=== PATIENT | female | born 1990 | race Caucasian/White ===

== ENCOUNTER → 2016-09-18 | Outpatient (REF) | payer OTHER | LOC: M LAB REF 13:47 | PROVIDERS: ATTEND Obstetrics & Gynecology | DX: O36.80X0 Pregnancy with inconclusive fetal viability, not applicable or unspecified (principal); Z3A.00 Weeks of gestation of pregnancy not specified ==

== ENCOUNTER → 2016-12-03 | Outpatient (CLI) | payer OTHER ==
[2016-12-03 19:58] LABS: ALT/SGPT 18 U/L (12-78); AST/SGOT 10 U/L (15-37); BILIRUBIN,TOTAL 0.2 MG/DL (0.2-1.0); CREATININE FOR GFR 0.61 MG/DL (0.55-1.02); GLOMERULAR FILTRATION RATE > 60.0 (>60); URIC ACID 2.7 MG/DL (2.6-6.0)
[2016-12-03 20:04] LABS: MEAN CORPUSCULAR HEMOGLOBIN 29.1 pg (27.0-33.0); MEAN CORPUSCULAR VOLUME 83.2 fl (80.0-96.0); RED CELL DISTRIBUTION WIDTH 13.8 % (11.5-14.5); WHITE BLOOD COUNT 8.9 K/mm3 (4.0-10.0)
== END ==
LOC: M LAB 16:30
PROVIDERS: ATTEND Advanced Practice Midwife
DX: R03.0 Elevated blood-pressure reading, without diagnosis of hypertension (principal)

== ENCOUNTER → 2017-01-27 | Outpatient (CLI) | payer OTHER ==
--- NOTE | 2017-01-27 21:58 | REP ---
Clinical: Anatomical evaluation. Comparison: 12/31/2016 . Findings: Examination demonstrates a single live intrauterine in breech presentation. motion is identified by technologist. Placenta is noted anteriorly and grade one without evidence for placenta previa or abruption. Amniotic fluid volume is normal. Cervix measures 5.3 cm in length and appears closed. No evidence for nuchal cord. Gestational age by LMP 23 weeks 3 days with OLIVIA 05/23/2017 . Gestational age by current measurements 23 weeks 3 days with OLIVIA 05/23/2017 . FHR equals 162 beats per minute. Estimated weight 620 grams ( 53rd percentile). Anatomical assessment demonstrates normal structures including cranium, choroid plexus, cavum, cerebellum/posterior fossa, lungs, diaphragm, stomach, cord insertion/three-vessel cord, kidneys/bladder, and extremities. Limited evaluation of the facial features, heart/ventricular outflow tracts, and spine. Impression: 1. Single live intrauterine in breech presentation demonstrating appropriate interval growth. 2. Anatomical limitations as described above may warrant reevaluation and follow-up. No gross abnormality otherwise noted. Signed by Jagdish Rice MD 01/27/2017 09:49 P
== END ==
LOC: MERGE 14:00 → M RAD 14:17
PROVIDERS: ATTEND Obstetrics & Gynecology
DX: Z36 Encounter for antenatal screening of mother (principal); Z3A.23 23 weeks gestation of pregnancy

== ENCOUNTER → 2017-02-16 | Outpatient (CLI) | payer OTHER ==
[2017-02-16 10:33] LABS: MEAN CORPUSCULAR HEMOGLOBIN 29.5 pg (27.0-33.0); MEAN CORPUSCULAR HGB CONC 34.6 g/dl (32.0-36.5); MEAN CORPUSCULAR VOLUME 85.2 fl (80.0-96.0); RED CELL DISTRIBUTION WIDTH 14.1 % (11.5-14.5); WHITE BLOOD COUNT 7.6 K/mm3 (4.0-10.0)
== END ==
LOC: M LAB 08:57
PROVIDERS: ATTEND Obstetrics & Gynecology
DX: Z36 Encounter for antenatal screening of mother (principal); Z3A.00 Weeks of gestation of pregnancy not specified

== ENCOUNTER → 2017-02-24 | Outpatient (CLI) | payer OTHER ==
[~2017-02-24] MED LIST: ACET50TA PO; ASPI81TA85 PO; LABE30TA PO; MOTR200T44 PO; NORC1TAB4 PO; PERC5TAB12 PO; PHEN1SUP6 PO; PRENTAB9 PO
[2017-02-24 10:26] LABS: MEAN CORPUSCULAR HEMOGLOBIN 29.9 pg (27.0-33.0); MEAN CORPUSCULAR HGB CONC 34.3 g/dl (32.0-36.5); MEAN CORPUSCULAR VOLUME 87.1 fl (80.0-96.0); RED CELL DISTRIBUTION WIDTH 13.9 % (11.5-14.5); WHITE BLOOD COUNT 11.3 K/mm3 (4.0-10.0)
[2017-02-24 10:54] LABS: ALT/SGPT 23 U/L (12-78); AST/SGOT 15 U/L (15-37); BILIRUBIN,TOTAL 0.4 MG/DL (0.2-1.0); CREATININE FOR GFR 0.76 MG/DL (0.55-1.02); GLOMERULAR FILTRATION RATE > 60.0 (>60); URIC ACID 3.5 MG/DL (2.6-6.0)
== END ==
LOC: M LAB 09:37
PROVIDERS: ATTEND Advanced Practice Midwife
DX: O13.2 Gestational [pregnancy-induced] hypertension without significant proteinuria, second trimester (principal)

== ENCOUNTER → 2017-02-26 | Outpatient (CLI) | payer OTHER | LOC: M LAB 06:57 | PROVIDERS: ATTEND Obstetrics & Gynecology | DX: O99.810 Abnormal glucose complicating pregnancy (principal) ==

== ENCOUNTER 2017-04-11 13:37 | Outpatient (CLI) | payer OTHER ==
[~2017-04-11] VITALS: Ht 160 cm; Wt 84.0 kg
[2017-04-11 14:26] LABS: MEAN CORPUSCULAR HEMOGLOBIN 29.4 pg (27.0-33.0); MEAN CORPUSCULAR HGB CONC 34.8 g/dl (32.0-36.5); MEAN CORPUSCULAR VOLUME 84.4 fl (80.0-96.0); RED CELL DISTRIBUTION WIDTH 14.3 % (11.5-14.5); WHITE BLOOD COUNT 8.7 K/mm3 (4.0-10.0)
[2017-04-11 15:03] LABS: ALBUMIN 2.8 GM/DL (3.2-5.2); ALBUMIN/GLOBULIN RATIO 0.85 (1.00-1.93); ALKALINE PHOSPHATASE 83 U/L (45-117); ALT/SGPT 23 U/L (12-78); ANION GAP 11 MEQ/L (8-16); AST/SGOT 14 U/L (15-37); BILIRUBIN,TOTAL 0.3 MG/DL (0.2-1.0); BLOOD UREA NITROGEN 8 MG/DL (7-18); CALCIUM LEVEL 8.3 MG/DL (8.5-10.1); CARBON DIOXIDE LEVEL 22 MEQ/L (21-32); CHLORIDE LEVEL 109 MEQ/L (98-107); CREATININE FOR GFR 0.63 MG/DL (0.55-1.02); GLOMERULAR FILTRATION RATE > 60.0 (>60); GLUCOSE, FASTING 92 MG/DL (70-105); POTASSIUM SERUM 3.9 MEQ/L (3.5-5.1); SODIUM LEVEL 142 MEQ/L (136-145); TOTAL PROTEIN 6.1 GM/DL (6.4-8.2)
[2017-04-11] MEDS ORDERED: PRENTAB9 PO (15:16)
[2017-05-12] MEDS ORDERED: LABE30TA PO (10:43)
[2017-05-12] MEDS ORDERED: ASPI81TA85 PO (10:43)
[2017-05-21] MEDS ORDERED: PERC5TAB12 PO (08:53)
== END 2017-04-11 16:30 | disposition home or self-care (01) ==
LOC: M LDO 13:37
PROVIDERS: ATTEND Advanced Practice Midwife
DX: O99.89 Other specified diseases and conditions complicating pregnancy, childbirth and the puerperium (principal); R53.81 Other malaise; R51 Headache; R42 Dizziness and giddiness; Z3A.34 34 weeks gestation of pregnancy

== ENCOUNTER → 2017-04-12 | Outpatient (REF) | payer OTHER | LOC: M LAB REF 18:01 | PROVIDERS: ATTEND Obstetrics & Gynecology | DX: O13.3 Gestational [pregnancy-induced] hypertension without significant proteinuria, third trimester (principal); Z3A.00 Weeks of gestation of pregnancy not specified ==

== ENCOUNTER → 2017-04-26 | Outpatient (REF) | payer OTHER | LOC: M LAB REF 16:49 | PROVIDERS: ATTEND Obstetrics & Gynecology | DX: O09.893 Supervision of other high risk pregnancies, third trimester (principal); Z3A.00 Weeks of gestation of pregnancy not specified ==

== ENCOUNTER 2017-05-19 05:31 | Inpatient (IN) | payer OTHER ==
[2017-05-19] VITALS (9 sets, daily range): BP systolic 117–134; BP diastolic 56–79
[~2017-05-19] VITALS: Ht 160 cm; Wt 92.6 kg
[~2017-05-19 05:31] MED LIST changes: -ACET50TA PO; -MOTR200T44 PO; -NORC1TAB4 PO; -PERC5TAB12 PO; -PHEN1SUP6 PO
[2017-05-19] MEDS ORDERED: BICITRA 30ML SOLN UDC PO ONE (06:00)
[2017-05-19] MEDS ORDERED: LACTATED RINGER'S 1000 ML IV ONE (06:00)
[2017-05-19 06:18] LABS: MEAN CORPUSCULAR HEMOGLOBIN 29.3 pg (27.0-33.0); MEAN CORPUSCULAR HGB CONC 35.1 g/dl (32.0-36.5); MEAN CORPUSCULAR VOLUME 83.4 fl (80.0-96.0); WHITE BLOOD COUNT 9.6 K/mm3 (4.0-10.0)
[2017-05-19] MEDS ORDERED: LR 1,000 ML IV SCH ×2 (07:00→09:15)
[2017-05-19] MEDS ORDERED: MORPHINE PRES-FREE INJ 10 MG/10 ML VIAL (J2274) As Ordered ONE (07:24)
[2017-05-19] MEDS ORDERED: OXYTOCIN INJ 10 UNITS/ML VIAL (J2590) As Ordered ONE (07:25)
[2017-05-19] MEDS ORDERED: KETOROLAC 60 MG/2 ML VIAL (J1885) As Ordered ONE (07:25)
[2017-05-19] MEDS ORDERED: ONDANSETRON 4MG/2ML VIAL (J2405) As Ordered ONE (07:25)
[2017-05-19] MEDS ORDERED: NALOXONE INJ 0.4 MG/1 ML VIAL (J2310) IV PRN ×2 (07:55)
[2017-05-19] MEDS ORDERED: ONDANSETRON 4MG/2ML VIAL (J2405) IV PRN ×3 (07:55→12:45)
[2017-05-19] MEDS ORDERED: METOCLOPRAMIDE INJ 10MG/2ML VIAL (J2765) IV PRN ×2 (07:55→09:15)
[2017-05-19] MEDS ORDERED: NALBUPHINE HCL 10 MG/ML AMP (J2300) IV PRN (07:55)
--- NOTE | 2017-05-19 08:29 | HPE ---
DATE OF ADMISSION: 05/19/2017 Tatiana is a 26-year-old female 5, para 1-0-3-1 with an estimated date of confinement (EDC) of 05/25/2017, estimated gestational age 39 weeks gestation with a history of prior section who is being admitted for an elective repeat section. Upon admission, no bleeding, no leakage of fluid, good movement. Her record reviewed, which was essentially unremarkable. lab: Blood type is A+, rubella immune, hepatitis negative, HIV negative, GC and chlamydia negative, 1-hour sugar testing was within normal limits. Her GBS is negative. PAST MEDICAL HISTORY: Denies. PAST SURGICAL HISTORY: Significant for dilatation and curettage times three, section times one. SOCIAL HISTORY: The patient denies any alcohol, drugs or cigarette smoking. REVIEW OF SYSTEMS: Unremarkable. FAMILY HISTORY: Significant for stomach and bladder cancer. PHYSICAL EXAMINATION ON ADMISSION: HEENT: Grossly within normal limits. ABDOMEN: Soft, nontender, nondistended. EXTREMITIES: No clubbing, cyanosis or edema. The vaginal exam was deferred. Tracing reviewed and category 1 tracing. ASSESSMENT: Intrauterine at 39 weeks gestation for elective repeat section. PLAN: Admit to labor and delivery. Routine labs sent. Awaiting OR for repeat section.
[2017-05-19 08:37] LABS: CORD GAS ABE A -0.9; CORD GAS HCO3 A 26.2 MEQ/L; CORD GAS O2 SAT A 23.7 %; CORD GAS PCO2 A 53.1 mmHg; CORD GAS PH A 7.311 UNITS; CORD GAS SBC A 21.9 MEQ/L; CORD GAS TCO2 A 27.8 MEQ/L
[2017-05-19 08:39] LABS: CORD GAS HCO3 V 22.1 MEQ/L; CORD GAS O2 SAT V 65.1 %; CORD GAS PCO2 V 40.2 mmHg; CORD GAS PH V 7.359 UNITS; CORD GAS PO2 V 28.3 mmHg; CORD GAS SBC V 21.2 MEQ/L; CORD GAS TCO2 V 23.4 MEQ/L
[2017-05-19] MEDS: PRENATAL VITAMINS CHEWABLE TABLET PO SCH (09:00)
[2017-05-19] MEDS: DOCUSATE SODIUM 100 MG CAP PO SCH ×2 (09:00→21:31)
[2017-05-19] MEDS ORDERED: PERCOCET 5MG/325MG TAB PO PRN (09:15)
[2017-05-19] MEDS ORDERED: fentaNYL 100 MCG/2 ML INJECTION (J3010) IV PRN (09:15)
[2017-05-19] MEDS ORDERED: MEPERIDINE INJ 25 MG/ML VIAL (J2175) IV PRN (09:15)
--- NOTE | 2017-05-19 09:45 | RO ---
DATE OF PROCEDURE: 05/19/2017 Tatiana is a 26-year-old female 5, para 1-0-3-1 with a history of prior section who is being admitted at 39 weeks for repeat section. PREOPERATIVE DIAGNOSIS: Term for elective repeat section. POSTOPERATIVE DIAGNOSIS: Term for elective repeat section. PROCEDURE: 1. Repeat section. 2. Revision of old scar. ANESTHESIA: Spinal. SURGEON: Dr. Walsh CATHODE [employer] PROCESSOR: Sweetie Vidal CNM COMPLICATIONS: None. ESTIMATED BLOOD LOSS: 500 mL. FINDINGS: Live female infant in the right occiput transverse position. scores 9 and 9. weight 7 pounds 10 ounces. Placenta removed manually intact. Normal-appearing tubes and ovaries. DESCRIPTION OF PROCEDURE: After obtaining informed consent, the patient was taken to the operating room where spinal anesthetic was found to be adequate. She was then draped and prepped in usual sterile fashion in supine position. At this point, elliptical incision was made over old scar. This was carried down to the fascia. Fascia was incised in midline fashion and carried through laterally. Superior aspect of the fascia then grasped with two Joshua clamps, tented off and dissected off the rectus muscles sharply. The inferior aspect was dissected off in a similar fashion. Rectus muscles in midline fashion. Perineum identified. Peritoneal cavity entered bluntly. Superior and inferior dissection of the peritoneum was then done with good visualization of the bladder. At this point, a Mobius skin retractor was placed. A low-transverse uterine incision was made. Infant was delivered in atraumatic fashion. Nose and mouth bulb suctioned. Cord doubly clamped and cut and was handed over to the waiting warmer. Cord blood and cord gas sent. Placenta removed manually. Uterus cleared of all clot and debris. The uterine incision was then repaired in two separate layers of #0 Vicryl sutures. Pelvis copiously irrigated with normal saline and suctioned out. Attention turned to the peritoneum, which was closed in a running fashion using #2-0 Vicryl. Superficial bleeders coagulated. Fascia closed in two separate segments of #0 Vicryl sutures and the skin was reapproximated in subcuticular fashion using #3-0 Vicryl on a Trent. Steri-Strips placed. The patient tolerated procedure well. She was then transferred to recovery room in stable condition.
[2017-05-19] MEDS ORDERED: PHEN1SUP6 PO (12:16)
[2017-05-19] MEDS ORDERED: ACET50TA PO (12:16)
[2017-05-19] MEDS: LR 1,000 ML IV SCH ×2 (12:39→18:12)
[2017-05-19] MEDS ORDERED: MOM 30ML SUSPENSION UDC PO PRN (12:45)
[2017-05-19] MEDS ORDERED: MEASLES,MUMPS,RUBELLA VACCINE INJ (MMR-II) (90707) SC SCH (12:45)
[2017-05-19] MEDS ORDERED: RHOGAM 300 MCG (1500 IU) INJ (J2790) IM SCH (12:45)
[2017-05-19] MEDS ORDERED: METHYLERGONOVINE MALEATE 0.2 MG TAB PO PRN (12:45)
[2017-05-19] MEDS: NORCO, ANEXSIA 5/325MG TABLET (HYDROcodone/ACETAMINOPHEN) PO PRN (14:04)
[2017-05-19] MEDS: IBUPROFEN 800 MG TAB PO SCH (17:52)
[2017-05-20] MEDS: IBUPROFEN 800 MG TAB PO SCH ×3 (01:56→17:33)
[2017-05-20 02:16] VITALS: BP 125/63
[2017-05-20] MEDS: LR 1,000 ML IV SCH ×3 (04:39→20:39)
[2017-05-20 06:24] VITALS: BP 130/68
[2017-05-20 07:10] LABS: MEAN CORPUSCULAR HEMOGLOBIN 30.4 pg (27.0-33.0); MEAN CORPUSCULAR VOLUME 84.3 fl (80.0-96.0); RED CELL DISTRIBUTION WIDTH 14.2 % (11.5-14.5)
[2017-05-20] MEDS: NORCO, ANEXSIA 5/325MG TABLET (HYDROcodone/ACETAMINOPHEN) PO PRN ×3 (07:29→19:56)
[2017-05-20] MEDS: PRENATAL VITAMINS CHEWABLE TABLET PO SCH (07:31)
[2017-05-20] MEDS: DOCUSATE SODIUM 100 MG CAP PO SCH ×2 (07:32→19:56)
[2017-05-20 10:00] VITALS: BP 121/78
[2017-05-20 14:00] VITALS: BP 124/74
[2017-05-20 18:00] VITALS: BP 132/79
[2017-05-20 22:38] VITALS: BP 119/68
[2017-05-20] MEDS: SIMETHICONE 80 MG CHEW TAB PO PRN (23:15)
[2017-05-21] MEDS: NORCO, ANEXSIA 5/325MG TABLET (HYDROcodone/ACETAMINOPHEN) PO PRN ×2 (00:38→06:30)
[2017-05-21] MEDS: IBUPROFEN 800 MG TAB PO SCH ×2 (00:38→08:17)
[2017-05-21] MEDS: LR 1,000 ML IV SCH (04:39)
[2017-05-21 06:38] VITALS: BP 122/59
[2017-05-21] MEDS: DOCUSATE SODIUM 100 MG CAP PO SCH (08:18)
[2017-05-21] MEDS: PRENATAL VITAMINS CHEWABLE TABLET PO SCH (08:19)
[2017-05-21] MEDS: SIMETHICONE 80 MG CHEW TAB PO PRN (08:20)
[2017-05-21] MEDS ORDERED: PERC5TAB12 PO (08:53)
[2017-05-21] MEDS ORDERED: NORC1TAB4 PO (09:20)
[2017-05-21] MEDS ORDERED: MOTR200T44 PO (09:20)
--- NOTE | 2017-05-21 09:21 | DSES ---
DATE OF ADMISSION: 05/19/2017 DATE OF DISCHARGE:05/21/17 FINAL DIAGNOSIS: Term for elective repeat section. PROCEDURE DURING ADMISSION: Repeat section. CONDITION ON DISCHARGE: Stable. DISCHARGE INSTRUCTIONS: The patient was discharged home with instruction to call if there is any severe bleeding, pain or temperature greater than 101. She is given a prescription for Percocet as needed for pain. She is further instructed to use Motrin as needed. BRIEF HISTORY: Tatiana is a 26-year-old female, G5, para 1-0-3-1 who was admitted at 39 weeks gestation for repeat section. She underwent the above- noted procedure and was then transferred to [facility] for postoperative care. Postoperatively she did well, remained afebrile all throughout her hospital stay. On postoperative day #2 she was found to be in stable condition. Her physical exam was within normal limits. She met all the criteria for discharge. At this point, the decision was made to discharge the patient home. She will follow up in the office in approximately 2 weeks for an incision check. TREVA
== END 2017-05-21 11:05 | disposition home or self-care (01) | DRG 540 ==
LOC: M LDI 05:31 → EDSTATUS 07:30 → M OBS 10:22
PROVIDERS: ADMIT Obstetrics & Gynecology; ATTEND Obstetrics & Gynecology
PROC: 10D00Z1 Extraction of Products of Conception, Low, Open Approach (ICD-10-PCS; principal; 2017-05-19 07:30)
DX: O34.211 Maternal care for low transverse scar from previous cesarean delivery (principal); Z37.0 Single live birth; Z3A.39 39 weeks gestation of pregnancy

== ENCOUNTER → 2017-08-06 | Outpatient (REF) | payer OTHER ==
[~2017-08-06] MED LIST changes: +ACET50TA PO; +MOTR200T44 PO; +NORC1TAB4 PO; +PERC5TAB12 PO; +PHEN1SUP6 PO
== END ==
LOC: M SFHCLERA 10:37
PROVIDERS: ATTEND Physician Assistant
DX: J02.9 Acute pharyngitis, unspecified (principal)

== ENCOUNTER → 2018-08-28 | Outpatient (REF) | payer OTHER ==
[~2018-08-28] MED LIST changes: -ACET50TA PO; +LABE300T2 PO; -LABE30TA PO; +MAPA500T2 PO
== END ==
LOC: M SFHCLERA 18:40
PROVIDERS: ATTEND Nurse Practitioner Family
DX: J02.9 Acute pharyngitis, unspecified (principal)

== ENCOUNTER → 2019-10-17 | Outpatient (CLI) | payer OTHER ==
[~2019-10-17] MED LIST changes: -NORC1TAB4 PO; +NORC1TAB7 PO
--- NOTE | 2019-10-17 14:26 | REP ---
Clinical: Irregular menstrual cycles. Technique: Transabdominal pelvic ultrasound followed by transvaginal examination for better evaluation of the endometrium and adnexa with color Doppler evaluation of the ovaries. Findings: The bladder is normal and measures 9.8 x 10.6 x 7.0 cm. Normal anteverted uterus measures 9.8 x 3.5 x 5.8 cm. Endometrial complex measures 5.7 mm thickness. No uterine or endometrial abnormalities appreciated. Bilateral ovaries are normal in appearance and vascularity without torsion. Right ovary measures 3.4 x 1.9 x 4 1 cm (RI 0.61) and includes 2.9 cm physiologic cyst / dominant follicle. Left ovary measures 2.7 x 2.5 x 2.2 cm (RI 0.64) with 1.8 cm simple paraovarian cyst. No significant pelvic fluid or adnexal mass lesion. Impression: 1. Normal uterus. 2. Ovarian cysts likely physiologic. Consider reevaluation in 4-6 weeks to evaluate for resolution if necessary. Electronically Signed by Jagdish Rice MD 10/17/2019 02:17 P
== END ==
LOC: M RAD 11:55
PROVIDERS: ATTEND Obstetrics & Gynecology
DX: N92.6 Irregular menstruation, unspecified (principal)

== ENCOUNTER → 2021-02-28 | Outpatient (CLI) | payer OTHER ==
[~2021-02-28] MED LIST changes: -ASPI81TA85 PO; +ASPI81TA86 PO
--- NOTE | 2021-02-28 09:29 | REP ---
INDICATION: RADICULOPATHY COMPARISON: None. TECHNIQUE: AP, lateral, bilateral oblique, and coned-down views of the lumbar spine. FINDINGS: Alignment and lordosis maintained. Vertebral bodies are intact. No acute fracture/compression injury or subluxation. Disc spaces are relatively normal/age-appropriate. No obvious spondylolysis or spondylolisthesis. IMPRESSION: Normal age-appropriate lumbosacral Spine series. <Electronically signed by Jagdish Rice > 02/28/21 [id number]
== END ==
LOC: M WUC 09:07
PROVIDERS: ATTEND Family Medicine
DX: M54.17 Radiculopathy, lumbosacral region (principal)

== ENCOUNTER → 2021-10-01 | Outpatient (REF) | payer OTHER | LOC: M LAB REF 17:22 | PROVIDERS: ATTEND Physician Assistant | DX: D49.2 Neoplasm of unspecified behavior of bone, soft tissue, and skin (principal) ==

== ENCOUNTER → 2021-11-06 | Outpatient (CLI) | payer OTHER | LOC: M WHC 12:18 | PROVIDERS: ATTEND Physician Assistant | DX: N83.202 Unspecified ovarian cyst, left side (principal) ==

== ENCOUNTER → 2021-11-06 | Outpatient (REF) | payer OTHER ==
[2021-11-06 13:50] LABS: APPEARANCE, URINE CLEAR (CLEAR); BACTERIA, URINE AUTO NEGATIVE (NEGATIVE); BILIRUBIN, URINE AUTO NEGATIVE (NEGATIVE); BLOOD, URINE BLOOD NEGATIVE (NEGATIVE); COLOR, URINE STRAW (YELLOW); GLUCOSE, URINE (UA) AUTO NEGATIVE (NEGATIVE); KETONE, URINE AUTO NEGATIVE (NEGATIVE); LEUKOCYTE ESTERASE, URINE AUTO NEGATIVE (NEGATIVE); NITRITE, URINE AUTO NEGATIVE (NEGATIVE); PROTEIN, URINE AUTO NEGATIVE (NEGATIVE); RBC, URINE AUTO 0 /HPF (0-3); SPECIFIC GRAVITY URINE AUTO 1.004 (1.002-1.035); SQUAMOUS EPITHELIAL CELL UR AU 0 /HPF (0-6); UROBILINOGEN, URINE AUTO 0.2 mg/dL (0.0-2.0); WBC, URINE AUTO 1 /HPF (0-3)
== END ==
LOC: M LAB REF 12:49
PROVIDERS: ATTEND Physician Assistant
DX: R30.0 Dysuria (principal)

== ENCOUNTER → 2022-02-18 | Outpatient (CLI) | payer OTHER | LOC: M PAIN 13:00 | PROVIDERS: ATTEND Nurse Practitioner Family | DX: M54.41 Lumbago with sciatica, right side (principal); G89.29 Other chronic pain; Z79.899 Other long term (current) drug therapy ==

== ENCOUNTER → 2022-02-27 | Outpatient (CLI) | payer OTHER | LOC: M RAD 11:58 | PROVIDERS: ATTEND Nurse Practitioner Family | DX: M54.41 Lumbago with sciatica, right side (principal) ==

== ENCOUNTER 2022-04-23 07:43 | Outpatient (RCR) | payer OTHER ==
[~2022-04-23 07:43] MED LIST changes: -LABE300T2 PO; +LABE300T55 PO
== END 2022-04-29 ==
LOC: M PT 07:43
PROVIDERS: ATTEND Student in an Organized Health Care Education/Training Program
DX: M54.41 Lumbago with sciatica, right side (principal)

== ENCOUNTER → 2022-06-04 | Outpatient (CLI) | payer OTHER | LOC: M PAIN 14:30 | PROVIDERS: ATTEND Nurse Practitioner Family | DX: M46.1 Sacroiliitis, not elsewhere classified (principal); E01.0 Iodine-deficiency related diffuse (endemic) goiter; R00.2 Palpitations; Z79.899 Other long term (current) drug therapy ==

== ENCOUNTER → 2022-07-08 | Outpatient (CLI) | payer OTHER | LOC: M RAD 08:01 | PROVIDERS: ATTEND Nurse Practitioner Family | DX: M46.1 Sacroiliitis, not elsewhere classified (principal) ==

== ENCOUNTER → 2022-08-17 | Outpatient (CLI) | payer OTHER | LOC: M PAIN 08:45 | PROVIDERS: ATTEND Nurse Practitioner Family | DX: M46.1 Sacroiliitis, not elsewhere classified (principal); G89.29 Other chronic pain; Z79.899 Other long term (current) drug therapy ==

== ENCOUNTER → 2022-09-18 | Outpatient (CLI) | payer OTHER | LOC: M PAIN 10:15 | PROVIDERS: ATTEND Nurse Practitioner Family | DX: M46.1 Sacroiliitis, not elsewhere classified (principal); G89.29 Other chronic pain; Z79.899 Other long term (current) drug therapy ==

== ENCOUNTER → 2022-11-03 | Outpatient (CLI) | payer OTHER | LOC: M LABSMTC 07:57 | PROVIDERS: ATTEND Anesthesiology | DX: Z01.818 Encounter for other preprocedural examination (principal); Z11.52 Encounter for screening for COVID-19 ==

== ENCOUNTER → 2022-11-05 | Outpatient (CLI) | payer OTHER ==
[~2022-11-05] MED LIST changes: +BUPIVACAINE HCL 0.25% 30ML VIAL As Ordered ONE; +ISOVUE-M 300 61% 15ML VIAL As Ordered ONE; +LIDOCAINE 1% SDV 30ML VIAL As Ordered ONE; +NORCO, ANEXSIA 5/325MG TABLET (HYDROcodone/ACETAMINOPHEN) As Ordered ONE; +TRIAMCINOLONE ACETONIDE SUSP 40MG/ML 1ML VIAL As Ordered ONE; +diazePAM 5MG TABLET As Ordered ONE
== END ==
LOC: M PAIN 09:30
PROVIDERS: ATTEND Anesthesiology
DX: M46.1 Sacroiliitis, not elsewhere classified (principal); Z79.899 Other long term (current) drug therapy
CPT/HCPCS: 27096; J3301; S0020

== ENCOUNTER → 2022-12-28 | Outpatient (CLI) | payer OTHER ==
[~2022-12-28] MED LIST changes: -BUPIVACAINE HCL 0.25% 30ML VIAL As Ordered ONE; -ISOVUE-M 300 61% 15ML VIAL As Ordered ONE; -LIDOCAINE 1% SDV 30ML VIAL As Ordered ONE; -NORCO, ANEXSIA 5/325MG TABLET (HYDROcodone/ACETAMINOPHEN) As Ordered ONE; -TRIAMCINOLONE ACETONIDE SUSP 40MG/ML 1ML VIAL As Ordered ONE; -diazePAM 5MG TABLET As Ordered ONE
== END ==
LOC: M PAIN 14:00
PROVIDERS: ATTEND Nurse Practitioner Family
DX: M46.1 Sacroiliitis, not elsewhere classified (principal); G89.29 Other chronic pain; Z79.899 Other long term (current) drug therapy

== ENCOUNTER → 2024-07-10 | Outpatient (REF) | payer OTHER ==
[~2024-07-10] MED LIST changes: +LABE300T28 PO; -LABE300T55 PO
[2024-07-10 18:24] LABS: ALKALINE PHOSPHATASE 59 U/L (35-104); ALT/SGPT 33 U/L (7.0-40); AST/SGOT 14 U/L (<34); BILIRUBIN,TOTAL 0.4 MG/DL (0.3-1.2); BLOOD UREA NITROGEN 8 MG/DL (9-23); CARBON DIOXIDE LEVEL 26 MMOL/L (20-31); CHLORIDE LEVEL 106 MMOL/L (98-107); CHOLESTEROL LEVEL 137 MG/DL (<200); CHOLESTEROL RISK RATIO 2.03 (<5); CREATININE FOR GFR 0.69 MG/DL (0.55-1.30); FREE T4 1.14 NG/DL (0.89-1.76); GLOMERULAR FILTRATION RATE > 60.0 (>60); GLUCOSE, FASTING 91 MG/DL (60-100); HDL CHOLESTEROL 67.4 MG/DL (>40); NON-HDL-C 69.6 MG/DL; SODIUM LEVEL 139 MMOL/L (136-145); THYROID STIMULATING HORMONE 1.645 uIU/ML (0.55-4.78); TOTAL PROTEIN 6.7 G/DL (5.7-8.2); TRIGLYCERIDES LEVEL 133 MG/DL (<150)
== END ==
LOC: M SFHCLERA 09:21
DX: F41.9 Anxiety disorder, unspecified (principal); Z68.33 Body mass index [BMI] 33.0-33.9, adult

== ENCOUNTER → 2025-08-15 | Outpatient (REF) | payer OTHER ==
[2025-08-15 18:06] LABS: BASO # 0.1 10^3/uL (0.0-0.2); BASO % 1.0 % (0.0-1.0); EOS # 0.1 10^3/uL (0.0-0.5); EOS % 1.5 % (0.0-3.0); LYMPH # 1.7 10^3/uL (1.5-5.0); LYMPH % 28.8 % (24.0-44.0); MONO # 0.4 10^3/uL (0.0-0.8); MONO % 6.0 % (2.0-8.0); NEUTROPHILS # 3.7 10^3/uL (1.5-8.5); NEUTROPHILS % 62.5 % (36.0-66.0); PLATELET COUNT, AUTOMATED 231 10^3/uL (150-450)
[2025-08-15 18:09] LABS: ALT/SGPT 24 U/L (7.0-40); AST/SGOT 21 U/L (<34); CALCIUM LEVEL 9.0 MG/DL (8.5-10.1); CARBON DIOXIDE LEVEL 27 MMOL/L (20-31); CHLORIDE LEVEL 106 MMOL/L (98-107); CHOLESTEROL LEVEL 147 MG/DL (<200); CHOLESTEROL RISK RATIO 2.32 (<5); CREATININE FOR GFR 0.72 MG/DL (0.55-1.30); FREE T4 1.30 NG/DL (0.89-1.76); GLOMERULAR FILTRATION RATE > 90.0 (>60); LDL CHOLESTEROL 66.0 MG/DL (<100); NON-HDL-C 83.8 MG/DL; POTASSIUM SERUM 4.2 MMOL/L (3.5-5.1); SODIUM LEVEL 139 MMOL/L (136-145); TRIGLYCERIDES LEVEL 89 MG/DL (<150)
[2025-08-15 18:23] LABS: ESTIMATED AVERAGE GLUCOSE 88.0 MG/DL (60-110)
== END ==
LOC: M SFHCLERA 07:50
PROVIDERS: ATTEND Student in an Organized Health Care Education/Training Program
DX: Z00.00 Encounter for general adult medical examination without abnormal findings (principal)